=== PATIENT | female | born 1955 | race Caucasian/White ===

== ENCOUNTER 2017-08-20 07:59 | Outpatient (CLI) | payer OTHER | END 2017-08-20 08:07 | disposition home or self-care (01) | LOC: LAB 07:59 | DX: D64.89 Other specified anemias (principal); R74.0 Nonspecific elevation of levels of transaminase and lactic acid dehydrogenase [LDH]; E72.8 Other specified disorders of amino-acid metabolism; C50.411 Malignant neoplasm of upper-outer quadrant of right female breast; E55.0 Rickets, active ==

== ENCOUNTER → 2018-01-07 09:33 | Outpatient (CLI) | payer OTHER | END | disposition home or self-care (01) | LOC: LAB 09:33 | DX: D64.89 Other specified anemias (principal); R74.0 Nonspecific elevation of levels of transaminase and lactic acid dehydrogenase [LDH]; E78.2 Mixed hyperlipidemia; E03.8 Other specified hypothyroidism; C50.412 Malignant neoplasm of upper-outer quadrant of left female breast; N39.0 Urinary tract infection, site not specified ==

== ENCOUNTER 2018-01-18 08:02 | Outpatient (CLI) | payer OTHER | END 2018-01-18 09:50 | disposition home or self-care (01) | LOC: LAB 08:02 | DX: E03.8 Other specified hypothyroidism (principal) ==

== ENCOUNTER 2018-08-13 07:44 | Outpatient (CLI) | payer OTHER | END 2018-08-13 15:00 | disposition home or self-care (01) | LOC: LAB 07:44 | DX: D64.89 Other specified anemias (principal); R74.0 Nonspecific elevation of levels of transaminase and lactic acid dehydrogenase [LDH]; E78.2 Mixed hyperlipidemia; C50.412 Malignant neoplasm of upper-outer quadrant of left female breast; E55.9 Vitamin D deficiency, unspecified ==

== ENCOUNTER 2019-01-10 07:56 | Outpatient (CLI) | payer OTHER | END 2019-01-10 08:07 | disposition home or self-care (01) | LOC: LAB 07:56 | DX: D64.89 Other specified anemias (principal); R74.0 Nonspecific elevation of levels of transaminase and lactic acid dehydrogenase [LDH]; E78.00 Pure hypercholesterolemia, unspecified; E03.8 Other specified hypothyroidism; N39.0 Urinary tract infection, site not specified; C18.0 Malignant neoplasm of cecum; M18.0 Bilateral primary osteoarthritis of first carpometacarpal joints ==

== ENCOUNTER 2019-05-22 11:06 | Emergency (ER) | payer OTHER ==
[~2019-05-22] VITALS: Ht 160 cm; Wt 68.0 kg
[2019-05-22] MEDS ORDERED: OSTERA TABLET1 EACH PO (11:09)
[2019-05-26] MEDS ORDERED: KETO10TA2 (09:10)
== END 2019-05-22 14:42 | disposition home or self-care (01) ==
LOC: ER 11:06
DX: S82.62XA Displaced fracture of lateral malleolus of left fibula, initial encounter for closed fracture (principal); W18.39XA Other fall on same level, initial encounter; Y93.89 Activity, other specified; Y92.89 Other specified places as the place of occurrence of the external cause; Y99.8 Other external cause status

== ENCOUNTER 2019-05-27 06:16 | Day surgery (SDC) | payer OTHER ==
[~2019-05-27 06:16] MED LIST: KETO10TA2; OSTERA TABLET1 EACH PO
[2019-05-27] MEDS ORDERED: PERCOCET 5-3251 EACH PO (12:13)
[2019-05-27] MEDS ORDERED: DUI500 PO (12:13)
[2019-05-27] MEDS ORDERED: ASA325 MG PO (12:13)
== END 2019-05-27 18:10 | disposition home or self-care (01) ==
LOC: CIR.AMB 06:16
DX: S82.842A Displaced bimalleolar fracture of left lower leg, initial encounter for closed fracture (principal); S93.421A Sprain of deltoid ligament of right ankle, initial encounter

== ENCOUNTER → 2019-12-16 08:00 | Outpatient (CLI) | payer OTHER ==
[~2019-12-16 08:00] MED LIST changes: +ASA325 MG PO; +DUI500 PO; +PERCOCET 5-3251 EACH PO
== END | disposition home or self-care (01) ==
LOC: PPH VACUNA 08:00
DX: Z23 Encounter for immunization (principal)

== ENCOUNTER → 2020-01-12 09:36 | Outpatient (CLI) | payer OTHER | END | disposition home or self-care (01) | LOC: LAB 09:36 | PROVIDERS: ATTEND Internal Medicine Hematology & Oncology | DX: D64.89 Other specified anemias (principal); E03.8 Other specified hypothyroidism; R74.01 Elevation of levels of liver transaminase levels; C50.412 Malignant neoplasm of upper-outer quadrant of left female breast; N39.0 Urinary tract infection, site not specified ==

== ENCOUNTER 2020-03-18 15:01 | Outpatient (CLI) | payer OTHER | END 2020-03-18 18:50 | disposition home or self-care (01) | LOC: PPH VACUNA 15:01 | DX: Z23 Encounter for immunization (principal) ==

== ENCOUNTER → 2020-11-09 13:53 | Outpatient (CLI) | payer OTHER | END | disposition home or self-care (01) | LOC: LAB 10-19 13:29 | PROVIDERS: ATTEND Internal Medicine Hematology & Oncology | DX: D64.89 Other specified anemias (principal); R74.01 Elevation of levels of liver transaminase levels; C50.412 Malignant neoplasm of upper-outer quadrant of left female breast; E78.00 Pure hypercholesterolemia, unspecified ==

== ENCOUNTER 2020-11-26 08:00 | Outpatient (CLI) | payer OTHER | END 2020-11-26 08:30 | disposition home or self-care (01) | LOC: PPH VACUNA 08:00 | DX: Z23 Encounter for immunization (principal) ==

== ENCOUNTER 2021-07-01 14:00 | Outpatient (CLI) | payer OTHER | END 2021-07-01 14:01 | disposition home or self-care (01) | LOC: NUCLEAR 14:00 | PROVIDERS: ATTEND Internal Medicine | DX: D64.9 Anemia, unspecified (principal) ==

== ENCOUNTER 2022-01-20 10:22 | Outpatient (CLI) | payer OTHER | END 2022-01-20 11:00 | disposition home or self-care (01) | LOC: SONOGRAMA 10:22 | PROVIDERS: ATTEND Internal Medicine | DX: Z12.31 Encounter for screening mammogram for malignant neoplasm of breast (principal); C50.411 Malignant neoplasm of upper-outer quadrant of right female breast; Z13.820 Encounter for screening for osteoporosis ==

== ENCOUNTER 2023-06-13 12:24 | Outpatient (CLI) | payer OTHER | END 2023-06-13 12:28 | disposition home or self-care (01) | LOC: MAMO-SONO 12:24 | PROVIDERS: ATTEND Internal Medicine | DX: C50.411 Malignant neoplasm of upper-outer quadrant of right female breast (principal); N60.12 Diffuse cystic mastopathy of left breast; N60.11 Diffuse cystic mastopathy of right breast ==